=== PATIENT | female | born 1965 | race Caucasian/White ===

== ENCOUNTER → 2017-11-18 | Day surgery (SDC) | payer OTHER ==
[~2017-11-18] MED LIST: FENTAnyl 50 MCG/ML VIAL; MIDAZOLAM 1 MG/ML 2 ML INJ
== END | disposition home or self-care (01) ==
LOC: GIL 13:40
DX: Z12.11 Encounter for screening for malignant neoplasm of colon (principal); D12.5 Benign neoplasm of sigmoid colon; K64.8 Other hemorrhoids
CPT/HCPCS: 45380; 88305

== ENCOUNTER 2018-02-20 09:11 | Day surgery (SDC) | payer OTHER ==
[~2018-02-20 09:11] MED LIST changes: +BUPIVACAINE 0.25% (MPF) 30 ML INJ; +CEFAZOLIN 2 GM/50 ML (PMX) 50 ML IVPB; -FENTAnyl 50 MCG/ML VIAL; -MIDAZOLAM 1 MG/ML 2 ML INJ; +SOD CHLORIDE 0.9% 1,000 ML IV
[2018-02-20 09:55] LABS: ADD MAN DIFF? NO
[2018-02-20 10:10] LABS: BASOPHILS % 0.6 % (0.0-2.0); EOSINOPHILS # 0.1 10^3/ul (0.0-0.5); HEMATOCRIT 43.3 % (37.0-47.0); HEMOGLOBIN 14.8 g/dl (12.0-16.0); LYMPHOCYTES # 1.3 10^3/ul (0.8-2.9); LYMPHOCYTES % 18.1 % (15.0-51.0); MEAN CORPUSCULAR HGB CONC 34.2 g/dl (32.0-37.0); MEAN CORPUSCULAR VOLUME 87.7 fl (82.0-101.0); MEAN PLATELET VOLUME 8.7 fl (7.4-10.4); MONOCYTE # 0.4 10^3/ul (0.3-0.9); MONOCYTES % 5.8 % (0.0-11.0); NEUTROPHIL # 5.2 10^3/ul (1.6-7.5); NEUTROPHILS % 73.2 % (39.0-77.0); PLATELET COUNT 272 10^3/UL (140-415); RED BLOOD COUNT 4.94 10^6/ul (4.20-5.40); RED CELL DISTRIBUTION WIDTH 12.1 % (11.5-14.5)
[2018-02-20 10:10] LABS: WHITE BLOOD COUNT 7.1 10^3/ul (4.8-10.8)
[2018-02-20 10:16] LABS: ALANINE AMINOTRANSFERASE 29 IU/L (13-69); ALBUMIN 4.4 g/dl (3.3-4.9); ALBUMIN/GLOBULIN RATIO 1.15; ALKALINE PHOSPHATASE 107 IU/L (42-121); ANION GAP 18 (8-16); ASPARTATE AMINO TRANSFERASE 24 IU/L (15-46); BILIRUBIN,INDIRECT 0.6 mg/dl (0-1.1); BILIRUBIN,TOTAL 0.6 mg/dl (0.2-1.3); CARBON DIOXIDE 25 mmol/L (21-31); CHLORIDE 106 mmol/L (97-110); GLUCOSE 108 mg/dl (70-220); TOTAL PROTEIN 8.2 g/dl (6.1-8.1)
[2018-02-20 10:17] LABS: BLOOD UREA NITROGEN 8 mg/dl (7-20); POTASSIUM 3.9 mmol/L (3.5-5.1); SODIUM 145 mmol/L (135-144)
[2018-02-20 10:21] LABS: PROTIME 12.2 Sec (11.9-14.9)
[2018-02-20 10:22] LABS: PARTIAL THROMBOPLASTIN TIME 33.1 Sec (25.0-35.0)
[2018-02-20] MEDS ORDERED: FENTAnyl 50 MCG/ML VIAL IV ×3 (10:30)
[2018-02-20] MEDS ORDERED: MIDAZOLAM 1 MG/ML 2 ML INJ IV (10:30)
[2018-02-20] MEDS ORDERED: LABETALOL HCL 20MG INJ IV (10:30)
[2018-02-20] MEDS ORDERED: DIPHENHYDRAMINE 50 MG INJ IV (10:30)
[2018-02-20] MEDS ORDERED: OXYCODONE/ACETAMINOPHEN (5/325) TAB PO ×2 (10:30)
[2018-02-20] MEDS ORDERED: hydrALAzine 20 MG INJ IV (10:30)
[2018-02-20] MEDS ORDERED: HYDROmorphONE (0.2 MG/ML) 10ML SYG IV (10:30)
[2018-02-20] MEDS ORDERED: EPHEDrine SULFATE 50 MG/5 ML SYG IV (10:30)
[2018-02-20] MEDS ORDERED: METOCLOPRAMIDE 10 MG INJ IV (10:30)
[2018-02-20] MEDS ORDERED: NEOSTIGMINE 3 MG/3 ML SYRINGE (10:34)
[2018-02-20] MEDS ORDERED: SUCCINYLCHOLINE CHLORIDE 100 MG/5 ML SYG IV (10:34)
[2018-02-20] MEDS ORDERED: GLYCOPYRROLATE 0.4 MG INJ ×2 (10:34→10:56)
[2018-02-20] MEDS ORDERED: MEPERIDINE 100 MG INJ (10:34)
[2018-02-20] MEDS ORDERED: LIDOCAINE 2% (SDV) 5 ML INJ (10:34)
[2018-02-20] MEDS ORDERED: ROCURONIUM 50 MG INJ (10:34)
[2018-02-20] MEDS ORDERED: PROPOFOL 20 ML (10:34)
[2018-02-20] MEDS ORDERED: CEFAZOLIN 1 GM INJ (10:55)
[2018-02-20] MEDS ORDERED: METOCLOPRAMIDE 10 MG INJ (10:56)
[2018-02-20] MEDS ORDERED: ONDANSETRON 4 MG INJ (10:56)
[2018-02-20] MEDS: BUPIVACAINE 0.25% (MPF) 30 ML INJ (11:03)
[2018-02-20] MEDS ORDERED: KETOROLAC 30 MG INJ IV (12:00)
[2018-02-20] MEDS ORDERED: morphine 2 MG INJ IV (12:00)
[2018-02-20] MEDS ORDERED: IBUPROFEN 600 MG TAB PO (12:00)
[2018-02-20] MEDS ORDERED: HYDROCODONE/APAP (5/325) TAB PO ×2 (12:00)
[2018-02-20] MEDS: MEPERIDINE 25 MG INJ IV (12:03)
[2018-02-20] MEDS: ONDANSETRON 4 MG INJ IV (12:04)
[2018-02-20] MEDS: HYDROmorphONE (0.2 MG/ML) 10ML SYG IV ×2 (12:10→12:19)
== END 2018-02-20 14:40 | disposition home or self-care (01) ==
LOC: SDS 09:11
DX: K81.1 Chronic cholecystitis (principal); E03.9 Hypothyroidism, unspecified
CPT/HCPCS: 47562; 71045; 80053; 85025; 85610; 85730; 88304; 93005